=== PATIENT | male | born 1990 | race Caucasian/White ===

== ENCOUNTER 2018-09-07 19:16 | Emergency (ER) | payer OTHER | END 2018-09-07 20:30 | disposition home or self-care (01) | LOC: FTE 19:16 | DX: G51.0 Bell's palsy (principal) | CPT/HCPCS: 99283; Z7502 ==

== ENCOUNTER 2019-01-26 19:18 | Emergency (ER) | payer OTHER ==
[2019-01-26] MEDS: IBUPROFEN 600 MG TAB PO (22:13)
== END 2019-01-26 23:59 | disposition home or self-care (01) ==
LOC: FTE 19:18
DX: M25.562 Pain in left knee (principal); M54.42 Lumbago with sciatica, left side
CPT/HCPCS: 29505; 73562; 99283-25